=== PATIENT | female | born 1945 | race Caucasian/White ===

== ENCOUNTER 2021-04-09 18:18 | Outpatient (REF) | payer MEDICARE, MEDICAID, SELFPAY ==
[2021-04-09 23:14] LABS: Bilirubin Negative (Negative); Blood Small (Negative); Clarity Sl Cloudy (Clear); Glucose Negative (Negative); Ketones Negative (Negative); Leukocyte Esterase Negative (Negative); Nitrite Negative (Negative); Urobilinogen 0.2 EU/dL (Up TO 0.2)
[2021-04-09 23:25] LABS: Bacteria Moderate HPF (Negative); C & S Indicated? Yes; Casts Negative LPF (Negative); Crystals Negative HPF (Negative); Epithelial Cells Rare HPF (Negative); Mucus Negative (Negative); RBC 0-2 HPF (0-2); WBC 0-2 HPF (0-5)
== END 2021-04-09 18:19 | disposition home or self-care (01) ==
LOC: LBN 18:18
PROVIDERS: PCP Radiology Radiation Oncology; Visit Provider Radiology Radiation Oncology
DX: R35.0 Frequency of micturition (principal)
CPT/HCPCS: 87077; 81003; 81015; 87086; 87186

== ENCOUNTER 2024-10-17 16:03 | Emergency (ER) | payer MEDICARE, MEDICAID, SELFPAY ==
[2024-10-17 16:11] VITALS: BP 145/60; PULSE 82; RESP 16; TEMP 36.6; O2SAT 98
--- NOTE | 2024-10-17 16:30 | DI.CT_ITS ---
Exam(s) CT HEAD CERVICAL SPINE WO EXAM: CT HEAD CERVICAL SPINE WO CLINICAL HISTORY: FALL. TECHNIQUE: Imaging Protocol: Axial computed tomography images with coronal and sagittal reformatted images were created and reviewed COMPARISON: No exams were available for comparison FINDINGS: BRAIN: There are no skull fractures nor fluid in the visualized paranasal sinuses. There is no evidence of intracranial hemorrhage, mass effect, or shift of midline structures. There are no extra-axial fluid collections. The ventricles are not enlarged or shifted and there is no blo od within the ventricular system nor within the basal cisterns. CERVICAL SPINE: There is no evidence of fracture nor listhesis. No significant prevertebral soft tissue swelling. There is chronic disc space narrowing at C5-6 level and bilateral Luschka joint osteophytes also note d at this level. Lesser amount of degenerative disc disease also evident at C6-7 level. There is mi ld reversal of the normal cervical curvature. There is some multilevel facet arthropathy. There is no significant facet joint malalignment. No significant osseous lesions evident. IMPRESSION: No acute intracranial findings on this noninfused CT scan of the brain. No evidence of cervical spine fracture, malalignment, nor acute compromise of the cervical spinal can al. Degenerative disc disease noted. Report called by myself to ER provider 10/17/2024 at 5:40 p.m. RADIATION DOSE DELIVERED: 1,194.19mGy.cm Total DLP DATA REPOSITORY: All CT scans at this facility are submitted to the National Radiology Data Registry (NRDR) Dose Index Registry (DIR) with the [employer] ([employer]). RADIATION OPTIMIZATION: All CT scans at this facility use at least one of these dose optimization te chniques: automated exposure control; mA and/or kV adjustment per patient size (includes targeted exa ms where dose is matched to clinical indication); or iterative reconstruction.
--- NOTE | 2024-10-17 16:43 | DI.RAD_ITS ---
Exam(s) XR HIP PELVIS ADULT BL EXAM: XR HIP PELVIS ADULT BL CLINICAL HISTORY: FALL. TECHNIQUE: 2D digital imaging was performed. COMPARISON: CR XR LUMBAR SPINE AP, LAT from 10/17/2024 FINDINGS: 3 views No evidence of acute pelvic nor hip fracture. Left hip prosthesis is noted. There are some degenera tive changes in the right hip joint but no acute fractures evident. No osseous lesions IMPRESSION: No acute fractures evident. Degenerative changes in the right hip. DATA REPOSITORY: RADIATION DOSE DELIVERED:
--- NOTE | 2024-10-17 16:43 | DI.RAD_ITS ---
Exam(s) XR LUMBAR SPINE AP, LAT EXAM: XR LUMBAR SPINE AP, LAT CLINICAL HISTORY: FALL. TECHNIQUE: 2D digital imaging was performed. COMPARISON: No exams were available for comparison FINDINGS: 3 views No evidence of fracture or listhesis nor pars defects. Disc spaces in the lumbar spine exhibit relat ively preserved height with the exception of some narrowing of T12-L1 level. There is multilevel facet arthropathy. No scoliosis. Sacroiliac joints unremarkable. IMPRESSION: No acute osseous findings in the lumbosacral spinal column. DATA REPOSITORY: RADIATION DOSE DELIVERED:
[2024-10-17] MEDS: Acetaminophen 500 MG TAB 1000 MG PO (18:16)
--- NOTE | 2024-10-17 22:21 | ED.GENADUL_ITS ---
Discharge Plan Disposition Patient Disposition: Home Discharge Details Clinical Impression: Fall, Back pain, Contusion of forehead Primary Care Provider: Marina Lozano ED Provider: Larry Mcdaniel Home Meds and New Rx's Prescriptions: No Action ascorbic acid (vitamin C) 250 mg tablet 250 mg PO DAILY PreserVision AREDS-2 250-90-40-1 mg capsule 1 tab PO DAILY magnesium carb,citrate,oxide 300 mg magnesium tablet 300 mg PO DAILY levothyroxine 50 mcg tablet 50 mcg PO DAILY Discharge Instructions Additional Instructions: Your imaging does not reveal any acute fractures or injuries You have a bruise on your forehead, you can apply ice to the area to help with the swelling You will likely be more sore tomorrow continue taking Tylenol for pain, do gentle stretching and movement so that you do not get too stiff Discharge Data Discharge Date/Time-TO BE ENTERED AT DEPARTURE: 10/17/24 18:16 HPI General Date/Time Provider Initiated Documentation: 10/17/24 16:43 . Limitations to Documentation: no limitations . Information obtained by: patient . HPI Narrative: 78-year-old female with out significant past medical history presents for evaluation after a fall. The patient reports that she was walking out of her house and tripped over the doorway. She did hit her head on the right side on the door frame. And landed on the right side of her body. She was able to get up and has been ambulating since the fall without difficulty. She did not lose consciousness. Denies any significant headache. Has not had any vision change or vomiting. She reports that pain is worse in her low back. There is no pain radiating down her legs. Denies any numbness tingling or weakness. Related Data Home Medications ?Medication ?Instructions ?Recorded ?Confirmed ascorbic acid (vitamin C) 250 mg 250 mg PO DAILY 02/12/23 10/17/24 tablet levothyroxine 50 mcg tablet 50 mcg PO DAILY 02/12/23 10/17/24 magnesium carb,citrate,oxide 300 mg PO DAILY 02/12/23 10/17/24 vit C 250 mg-vit E 90 mg-zinc 40 1 tab PO DAILY 02/12/23 10/17/24 mg-copper 1 [id number] capsule (PreserVision AREDS-2) Allergies Allergy/AdvReac Type Severity Reaction Status Date / Time No Known Allergies Allergy Verified 10/17/24 16:14 General Stated Complaint: Fall/Non TraumaCriteria TOYA: 3 Exam Narrative Exam Narrative: Review of Systems: All systems reviewed & are unremarkable except as noted in HPI and below Well-developed, no acute distress Small contusion to the right forehead, no skull instability PERRL, normal conjunctiva No hemotympanum RRR no murmur Unlabored respiratory effort clear bilaterally Nondistended abdomen soft nontender No midline back tenderness step-off or deformity, normal gait, sensation intact, equal strength bilateral lower extremities Course Vital Signs Vital signs: Vital Signs Temperature 36.6 C 10/17/24 16:11 Pulse 82 10/17/24 16:11 Respiratory Rate 16 10/17/24 16:11 Blood Pressure 145/60 H 10/17/24 16:11 Pulse Oximetry 98 10/17/24 16:11 Temperature 36.6 C 10/17/24 16:11 Pulse 82 10/17/24 16:11 Respiratory Rate 16 10/17/24 16:11 Blood Pressure 145/60 H 10/17/24 16:11 Pulse Oximetry 98 10/17/24 16:11 Pain Level 0 10/17/24 16:11 Medical Decision Making Emergent evaluation after a fall. The patient did not have a loss of consciousness. She is not on any blood thinners. She has a normal nonfocal neurologic exam but does have some signs of head trauma. CT imaging of head and C-spine were obtained. She also got some x-rays of her hips low back and pelvis as she was having some pain in these areas. I discussed the CT imaging with the radiologist and there is no acute fracture or other traumatic injury noted on examination. The patient's pain is well-controlled. At this time she is stable for discharge home. Return precautions advised. Recommend follow-up with PCP as needed. Quality:SDOH Health Related Social Needs: No Data to Display PFSH All Active Problems Contusion of forehead (Acute) Back pain (Acute) Fall (Acute) Medical History Hip fracture Endometrial cancer GERD (gastroesophageal reflux disease) Fracture of left femur Chronic fatigue Postmenopausal bleeding Polyneuropathy Malignant neoplasm Hypothyroidism Surgical History H/O: hysterectomy Hx of shoulder surgery History of left hip replacement Family History Father Abdominal aortic aneurysm (AAA) Mother Colon cancer Social History Smoking risk assessment performed?: No
== END 2024-10-17 18:16 | disposition home or self-care (01) ==
LOC: ER 18:15
PROVIDERS: Emergency Provider Emergency Medicine; PCP Internal Medicine
DX: S00.83XA Contusion of other part of head, initial encounter (principal); M54.50 Low back pain, unspecified; W01.0XXA Fall on same level from slipping, tripping and stumbling without subsequent striking against object, initial encounter; Y93.01 Activity, walking, marching and hiking; Y92.018 Other place in single-family (private) house as the place of occurrence of the external cause
CPT/HCPCS: 73521; 99284; 70450; 72100; 72125